=== PATIENT | male | born 1965 | race Caucasian/White ===

== ENCOUNTER 2018-08-25 09:58 | Day surgery (SDC) | payer OTHER ==
[2018-08-24 12:15] VITALS: BMI 27.3
[2018-08-25 10:21] VITALS: TEMP 97.5
[2018-08-25] MEDS ORDERED: LACTATED RINGERS 1,000 ML IV ONE (10:21)
[2018-08-25] MEDS ORDERED: LIDOCAINE 1% 20 ML VIAL (10MG/ML) FOR IV START INTRADERMA ONE (10:21)
[2018-08-25] MEDS ORDERED: PROPOFOL 10 MG/ML 20 ML VIAL IV ONE (12:07)
[2018-08-25] MEDS ORDERED: LIDOCAINE 1% INJ 10MG/ML (20 ML MDV) ONE (12:07)
--- NOTE | 2018-08-25 12:11 | P.GSHP ---
History of Present Illness H&P Date: 08/25/18 Chief Complaint: Screening colonoscopy This is a 53-year-old male who presents today for screening colonoscopy. Patient denies a significant GI complaints. Past Medical History Past Medical History: Hypertension Additional Past Medical History / Comment(s): states no BP problems since wt loss History of Any Multi-Drug Resistant Organisms: None Reported Past Surgical History: Orthopedic Surgery Additional Past Surgical History / Comment(s): cary arms tendon repair Past Anesthesia/Blood Transfusion Reactions: No Reported Reaction Smoking Status: Never smoker - Past Family History Mother Family Medical History: No Reported History Father Family Medical History: No Reported History Medications and Allergies Home Medications Medication Instructions Recorded Confirmed Type HYDROcodone/APAP 7.5-325MG [[place] 0.5 tab PO DAILY 11/04/14 08/25/18 History 7.5-325] Lisinopril [Zestril] 5 mg PO 1700 11/04/14 08/25/18 History Coreg(Dose Unknown) 1 tab PO 1700 08/24/18 08/25/18 History Zoloft(Dose Unknown) 1 tab PO 1700 08/24/18 08/25/18 History Allergies Allergy/AdvReac Type Severity Reaction Status Date / Time benzocaine [From TriOxin] Allergy Rash/Hives Verified 08/24/18 12:07 chloroxylenol [From TriOxin] Allergy Rash/Hives Verified 08/24/18 12:07 clarithromycin [From Biaxin] Allergy Rash/Hives Verified 08/24/18 12:07 hydrocortisone acetate Allergy Rash/Hives Verified 08/24/18 12:07 [From TriOxin] levofloxacin [From Levaquin] Allergy Rash/Hives Verified 08/24/18 12:07 Surgical - Exam Vital Signs Temp Pulse Resp BP Pulse Ox 97.5 F L 85 18 149/103 96 08/25/18 10:20 08/25/18 10:20 08/25/18 10:20 08/25/18 10:20 08/25/18 10:20 - General well developed, no distress - Eyes PERRL - ENT normal pinna - Neck no masses - Respiratory normal expansion - Cardiovascular Rhythm: regular - Abdomen Abdomen: soft, non tender Assessment and Plan Assessment: We'll perform screening colonoscopy
[2018-08-25 12:26] VITALS: RESP 16
--- NOTE | 2018-08-25 12:33 | P.OP ---
Date of Procedure: 08/25/18 Preoperative Diagnosis: Screening colonoscopy Postoperative Diagnosis: Normal colonoscopy Procedure(s) Performed: Colonoscopy Anesthesia: MAC Surgeon: Melvin Patricia Pathology: none sent Condition: stable Disposition: PACU Description of Procedure: PROCEDURE: The patient was placed on the endoscopy table in the lateral position. Digital rectal examination was performed which revealed no abnormalities. The prostate was symmetrical without nodules. Flexible colonoscope was then placed in the patient's anus and passed throughout the entire colon. The ileocecal valve was visualized. The cecum, ascending, transverse, descending and sigmoid colon were normal. The rectum was normal as well. There were no masses, polyps or diverticula noted in the entire colon. SUMMARY OF FINDINGS: Normal colonoscopy.
[2018-08-25 12:41] VITALS: BP 158/83; PULSE 77
== END 2018-08-25 13:01 | disposition home or self-care (01) ==
LOC: ORWHC2ENDO 09:58
PROVIDERS: ATTEND Surgery
DX: Z12.11 Encounter for screening for malignant neoplasm of colon (principal); I10 Essential (primary) hypertension; F39 Unspecified mood [affective] disorder; Z79.891 Long term (current) use of opiate analgesic; Z79.899 Other long term (current) drug therapy; Z88.4 Allergy status to anesthetic agent; Z88.1 Allergy status to other antibiotic agents; Z88.8 Allergy status to other drugs, medicaments and biological substances; Z91.09 Other allergy status, other than to drugs and biological substances
CPT/HCPCS: J2001; J2704; G0121

== ENCOUNTER 2018-11-26 13:09 | Emergency (ER) | payer OTHER ==
[2018-11-26 13:14] VITALS: BP 192/106; PULSE 83; RESP 18; TEMP 98.1
--- NOTE | 2018-11-26 14:16 | ED ---
General Adult HPI - General Chief complaint: Eye Problems Stated complaint: eye swelling/pain Source: patient, RN notes reviewed Mode of arrival: ambulatory Limitations: no limitations - History of Present Illness Initial comments: 53-year-old male presents to the emergency department for chief complaint of right eye swelling. Patient states that Tuesday he started to have a red patch on his nose that was painful. 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 Patient states that yesterday he started to notice some swelling that wasn't his eye today it worsened. Patient denies any pain of the eye itself. Denies any pain with movement of the eye. Denies any visual changes. Denies fevers or chills. Patient was put on Keflex, promethazine, loratadine, metformin last week. He has been most these medications for cold symptoms. Patient states he has had a mild cough and congestion. Denies any fevers or chills.Patient has no other complaints at this time including shortness of breath, chest pain, abdominal pain, nausea or vomiting, headache, or visual changes. - Related Data Home Medications Medication Instructions Recorded Confirmed HYDROcodone/APAP 7.5-325MG [[place] 0.5 tab PO DAILY 11/04/14 08/25/18 7.5-325] Lisinopril [Zestril] 5 mg PO 1700 11/04/14 08/25/18 Coreg(Dose Unknown) 1 tab PO 1700 08/24/18 08/25/18 Zoloft(Dose Unknown) 1 tab PO 1700 08/24/18 08/25/18 Previous Rx's Medication Instructions Recorded Clindamycin [Cleocin] 450 mg PO Q6H 10 Days capsule 11/26/18 Allergies Allergy/AdvReac Type Severity Reaction Status Date / Time benzocaine [From TriOxin] Allergy Rash/Hives Verified 11/26/18 13:15 chloroxylenol [From TriOxin] Allergy Rash/Hives Verified 11/26/18 13:15 clarithromycin [From Biaxin] Allergy Rash/Hives Verified 11/26/18 13:15 hydrocortisone acetate Allergy Rash/Hives Verified 11/26/18 13:15 [From TriOxin] levofloxacin [From Levaquin] Allergy Rash/Hives Verified 11/26/18 13:15 Review of Systems ROS Statement: Those systems with pertinent positive or pertinent negative responses have been documented in the HPI. ROS Other: All systems not noted in ROS Statement are negative. Past Medical History Past Medical History: Hypertension History of Any Multi-Drug Resistant Organisms: None Reported Past Surgical History: Orthopedic Surgery Additional Past Surgical History / Comment(s): cary arms tendon repair Past Anesthesia/Blood Transfusion Reactions: No Reported Reaction Past Psychological History: No Psychological Hx Reported Smoking Status: Never smoker Past Alcohol Use History: Occasional Past Drug Use History: None Reported - Past Family History Mother Family Medical History: No Reported History Father Family Medical History: No Reported History General Exam Limitations: no limitations General appearance: alert, in no apparent distress Head exam: Present: atraumatic, normocephalic, normal inspection Eye exam: Present: PERRL, EOMI, periorbital swelling (Patient does have edema that is soft palpation periorbitally on the right with area of redness noted over the right lateral aspect of the nose.), periorbital tenderness. Absent: scleral icterus, conjunctival injection ENT exam: Present: normal exam, normal oropharynx, mucous membranes moist, TM's normal bilaterally, normal external ear exam, other (Nares appear unremarkable on examination) Neck exam: Present: normal inspection, full ROM. Absent: tenderness, meningismus, lymphadenopathy Respiratory exam: Present: normal lung sounds bilaterally. Absent: respiratory distress, wheezes, rales, rhonchi, stridor Cardiovascular Exam: Present: regular rate, normal rhythm, normal heart sounds. Absent: systolic murmur, diastolic murmur, rubs, gallop, clicks Neurological exam: Present: alert, oriented X3, CN II-XII intact Psychiatric exam: Present: normal affect, normal mood Course Vital Signs 11/26/18 13:13 Temperature 98.1 F Pulse Rate 83 Respiratory 18 Rate Blood Pressure 192/106 O2 Sat by Pulse 98 Oximetry Medical Decision Making - Medical Decision Making Well-appearing 53-year-old male presents for right eye swelling times one day. Patient states this started yesterday. States that the day before this he had a red patch on the lateral aspect of his nose after wearing welding glasses. Patient was recently started on 40 medications due to cold symptoms over the past week. Patient stopped taking these as there is concern for ALLERGIC reaction however this is unlikely with only one eye having edema. Conjunctiva appears within normal limits. Patient does not have pain with movement of the extraocular muscles. Patient does have edema noted of the periorbital structures of the right thigh as well as some edema of the lateral aspect of the right side of the nose. Ears appear within normal limits. Patient likely has a cellulitis or sinusitis. Patient will be started on clindamycin. However did discuss in depth the patient is to monitor this and return if he has any worsening symptoms. Dr. Doll also visualized the patient. Patient requesting discharge home. Does not want repeat vitals. Disposition Clinical Impression: Cellulitis, Periorbital cellulitis of right eye Disposition: HOME SELF-CARE Condition: Good Instructions (If sedation given, give patient instructions): Cellulitis (ED), Periorbital Cellulitis in Adults (ED) Additional Instructions: Take antibiotics as directed. Please follow up with primary care in 1-2 days. Return here to the emergency department if you have any worsening symptoms. Prescriptions: Clindamycin [Cleocin] 450 mg PO Q6H 10 Days capsule Is patient prescribed a controlled substance at d/c from ED?: No Referrals: Daya Dejesus DO [Primary Care Provider] - 1-2 days Time of Disposition: 14:15
== END 2018-11-26 14:39 | disposition home or self-care (01) ==
LOC: EC 13:09
DX: L03.213 Periorbital cellulitis (principal); I10 Essential (primary) hypertension; Z79.899 Other long term (current) drug therapy; Z88.1 Allergy status to other antibiotic agents; Z88.8 Allergy status to other drugs, medicaments and biological substances; Z88.4 Allergy status to anesthetic agent
CPT/HCPCS: 99283

== ENCOUNTER → 2021-09-26 | Outpatient (CLI) | payer BC ==
[2021-09-26 16:53] LABS: Rheumatoid Factor, Qnt <10 IU/mL (0-15)
== END | disposition home or self-care (01) ==
LOC: LABWHC1 10:36
PROVIDERS: ATTEND Physician Assistant
DX: M25.871 Other specified joint disorders, right ankle and foot (principal)
CPT/HCPCS: 36415; 84550; 85652; 86038; 86140; 86431

== ENCOUNTER → 2022-01-06 | Outpatient (CLI) | payer BC ==
[2022-01-06 14:50] LABS: HCT 41.8 % (39.6-50.0); HGB 13.9 g/dL (13.0-17.0); MCH 31.7 pg (27.0-32.0); MCHC 33.3 g/dL (32.0-37.0); MCV 95.4 fL (80.0-97.0); Mean Platelet Volume 12.8 fL (9.5-12.2); NRBC Per 100 WBC 0 /100 WBCS (0.0-0.0); Platelet Count 206 X 10*3/uL (140-440); RBC 4.38 X 10*6/uL (4.40-5.60); WBC 6.66 X 10*3/uL (4.50-10.00)
[2022-01-06 15:05] LABS: African American GFR (CKD) 90.2 (60.0-200.0); Albumin 4.2 g/dL (3.8-4.9); Albumin/Globulin Ratio 1.41 (1.60-3.17); Anion Gap 15.1 mmol/L (10.00-18.00); BUN/Creat Ratio 16.1 Ratio (12.00-20.00); Blood Urea Nitrogen 16.9 mg/dL (9.0-27.0); Calcium 9.7 mg/dL (8.7-10.3); Carbon Dioxide 20.4 mmol/L (20.0-27.5); Non-African American GFR(CKD) 77.9 (60.0-200.0); Potassium 4.3 mmol/L (3.5-5.5); Total Bilirubin 0.4 mg/dL (0.30-1.20); Total Protein 7.2 g/dL (6.2-8.2); Uric Acid 4.9 mg/dL (3.7-8.7)
== END | disposition home or self-care (01) ==
LOC: LABWHC1 09:22
PROVIDERS: ATTEND Physician Assistant
DX: Z12.5 Encounter for screening for malignant neoplasm of prostate (principal); I10 Essential (primary) hypertension; E11.9 Type 2 diabetes mellitus without complications; E78.5 Hyperlipidemia, unspecified; M10.9 Gout, unspecified; F34.1 Dysthymic disorder
CPT/HCPCS: 36415; 80053; 83036; 84443; 84550; 85027